=== PATIENT | female | born 1945 | race Caucasian/White ===

== ENCOUNTER → 2024-04-20 10:31 | Outpatient (REF) | payer MEDICARE, SELFPAY ==
[2024-04-20 11:45] LABS: % Basophils 0.7 % (0-2); % Eosinophils 3.4 % (0-6); % Immature Granulocytes 0.7 % (0-0.5); % Lymphocytes 26.8 % (20.5-51.1); % Monocytes 8.3 % (1.7-9.3); % Neutrophils 60.1 % (42.2-75.2); Absolute Basophils 0.1 10^3/uL (0-0.2); Absolute Eosinophils 0.3 10^3/uL (0-0.7); Absolute Immature Granulocytes 0.1 10^3/uL (0-0.05); Absolute Lymphocytes 2.3 10^3/uL (1.2-3.4); Absolute Monocytes 0.7 10^3/uL (0.1-0.6); Absolute Neutrophils 5.1 10^3/uL (1.4-6.5); Hematocrit 39.9 % (37.0-47.0); Hemoglobin 13.3 g/dL (12.0-16.0); Mean Corp Hgb Conc. 33.3 g/dL (33.0-37.0); Mean Corpuscular Hgb 29.1 pg (27.0-31.0); Mean Corpuscular Volume 87.3 fL (81.0-99.0); Mean Platelet Volume 8.8 fL (7.4-10.4); Nucleated Red Blood Cells % 0 %; Platelet Count 462 10^3/uL (130-400); Red Blood Cell Count 4.57 10^6/uL (4.20-5.40); Red Cell Dist. Width 13.3 % (11.5-14.5); White Blood Cell Count 8.4 10^3/uL (4.8-10.8)
[2024-04-20 11:48] LABS: ALT (SGPT) 21 U/L (0-35); AST (SGOT) 25 U/L (14-36); Albumin 4.4 g/dl (3.5-5.0); Alkaline Phosphatase 85 U/L (38-126); Blood Urea Nitrogen 30 mg/dl (7-17); Calcium 9.9 mg/dl (8.4-10.2); Carbon Dioxide 34 mmol/L (22-30); Chloride 101 mmol/L (98-107); Glucose 93 mg/dl (70-99); HDL Cholesterol 64 mg/dl; LDL Cholesterol, Calculated 149 mg/dl; Potassium 4.7 mmol/L (3.5-5.1); Sodium 143 mmol/L (135-145); Total Bilirubin 0.6 mg/dl (0.2-1.3); Total Cholesterol 240 mg/dl (50-199); Total Protein 7.1 g/dl (6.3-8.2); Triglyceride 136 mg/dl (10-149); Very Low Density Lipoprotein 27 mg/dl (0-30); eGFR > 60.00
[2024-04-20 12:53] LABS: Glycohemoglobin (HgbA1c) 5.5 % (4.0-5.6)
== END ==
LOC: REG 10:31
PROVIDERS: ATTENDING PHYSICIAN Internal Medicine
DX: E78.5 Hyperlipidemia, unspecified (principal); R53.83 Other fatigue; R73.01 Impaired fasting glucose; E03.9 Hypothyroidism, unspecified; G60.9 Hereditary and idiopathic neuropathy, unspecified
CPT/HCPCS: 36415; 80053; 80061; 83036; 85025

== ENCOUNTER → 2024-05-29 15:01 | Outpatient (REF) | payer MEDICARE, SELFPAY | LOC: RAD 15:01 | PROVIDERS: ATTENDING PHYSICIAN Internal Medicine | DX: M79.642 Pain in left hand (principal) | CPT/HCPCS: 73130 ==

== ENCOUNTER → 2024-12-07 16:09 | Outpatient (REF) | payer MEDICARE, SELFPAY | LOC: RAD 16:09 | PROVIDERS: ATTENDING PHYSICIAN Internal Medicine | DX: M25.561 Pain in right knee (principal) | CPT/HCPCS: 73564 ==

== ENCOUNTER → 2024-12-12 07:56 | Outpatient (REF) | payer MEDICARE, SELFPAY | LOC: RAD 07:56 | PROVIDERS: ATTENDING PHYSICIAN Internal Medicine | DX: M54.2 Cervicalgia (principal) | CPT/HCPCS: 72040 ==

== ENCOUNTER → 2025-07-16 10:31 | Outpatient (REF) | payer MEDICARE, SELFPAY ==
[2025-07-16 11:27] LABS: Hematocrit 41.0 % (37.0-47.0); Hemoglobin 13.1 g/dL (12.0-16.0); Mean Corp Hgb Conc. 32.0 g/dL (33.0-37.0); Mean Corpuscular Volume 90.7 fL (81.0-99.0); Nucleated Red Blood Cells % 0 %; Platelet Count 368 10^3/uL (130-400); Red Cell Dist. Width 13.2 % (11.5-14.5)
[2025-07-16 11:44] LABS: Glycohemoglobin (HgbA1c) 5.5 % (4.0-5.9)
[2025-07-16 11:56] LABS: ALT (SGPT) 22 U/L (0-35); AST (SGOT) 26 U/L (14-36); Albumin 4.6 g/dl (3.5-5.0); Alkaline Phosphatase 79 U/L (38-126); Blood Urea Nitrogen 21 mg/dl (7-17); Calcium 9.8 mg/dl (8.4-10.2); Carbon Dioxide 31 mmol/L (22-30); Chloride 103 mmol/L (98-107); Glucose 105 mg/dl (70-99); HDL Cholesterol 66 mg/dl; LDL Cholesterol, Calculated 166 mg/dl; Potassium 4.6 mmol/L (3.5-5.1); Sodium 140 mmol/L (135-145); Total Protein 7.7 g/dl (6.3-8.2); Very Low Density Lipoprotein 22 mg/dl (0-30); eGFR > 60.00
[2025-07-16 12:25] LABS: TSH 1.17 uIU/ml (0.47-4.68)
== END ==
LOC: REG 10:31
PROVIDERS: ATTENDING PHYSICIAN Internal Medicine
DX: R73.01 Impaired fasting glucose (principal); E78.5 Hyperlipidemia, unspecified; E03.9 Hypothyroidism, unspecified
CPT/HCPCS: 36415; 80053; 80061; 83036; 84443; 85025